=== PATIENT | female | born 1955 | race Native Hawaiian/Other Pacific Islander ===

== ENCOUNTER 2017-12-05 20:32 | Observation (INO) | payer OTHER ==
[2017-12-05] MEDS ORDERED: Nitroglycerin 2% 15 INCH/30 GM TUBE TOP STA (20:48)
[2017-12-05] MEDS ORDERED: Nitroglycerin 2% Ointment Foilpak UD TOP ONE (20:54)
[2017-12-05 21:15] LABS: BASO # 0.1 K/uL (0.0-0.2); BASO % 1.2 % (0.0-2.0); EOS # 0.1 K/uL (0.0-0.7); EOS % 0.9 % (0.0-4.0); HEMOGLOBIN 14.5 g/dL (12.0-16.0); LYMPH # 2.6 K/uL (1.0-4.3); LYMPH % 29.7 % (20.0-40.0); MEAN CELL VOLUME 91.7 fl (81.0-99.0); MEAN CORPUSCULAR HEMOGLOBIN 30.5 pg (27.0-31.0); MEAN CORPUSCULAR HGB CONC 33.3 g/dL (33.0-37.0); MEAN PLATELET VOLUME 8.6 fl (7.2-11.7); MONO # 0.4 K/uL (0.0-0.8); MONO % 4.2 % (0.0-10.0); NEUT # 5.5 K/uL (1.8-7.0); RBC 4.75 Mil/uL (3.80-5.20); WHITE BLOOD COUNT 8.6 K/uL (4.8-10.8)
[2017-12-05 21:25] LABS: CALCIUM 9.9 mg/dL (8.4-10.2); GFR AFRICAN-AMERICAN > 60; GFR NON-AFRICAN AMERICAN > 60
[2017-12-05 21:37] LABS: B-TYPE NATRIURETIC PEPTIDE 868 pg/ml (0-900)
[2017-12-05 21:45] LABS: ALB/GLOB RATIO 1.1 (1.0-2.1); ALBUMIN 5.2 g/dL (3.5-5.0); ALT/SGPT 14 U/L (9-52); AST/SGOT 46 U/L (14-36); BLOOD UREA NITROGEN 13 mg/dl (7-17)
[2017-12-05] MEDS ORDERED: Labetalol 5 mg/ml Inj 20ML IVP STA ×2 (21:47→22:45)
--- NOTE | 2017-12-05 21:55 | ED PDOC ---
HPI: Chest Pain Time Seen by Provider: 12/05/17 20:46 Chief Complaint (Nursing): Dizziness/Lightheaded Chief Complaint (Provider): Chest Pain, Headache, Shortness of Breath History Per: Patient History/Exam Limitations: no limitations Onset/Duration Of Symptoms: Days (x2) Current Symptoms Are (Timing): Still Present Additional Complaint(s): 62 year old [place]ian female with a history of hypertension presents to the ED complaining of chest pain, headache, and shortness of breath since yesterday morning. Of note, patient states she was formerly on medication for her hypertension but successfully came off of them accrediting it to lifestyle changes. 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 When her symptoms came back again today, she attributed it to the warm weather, but her daughter compelled her to come in to the ED for evaluation. She reports nausea but denies vomiting and diaphoresis. PMD: notes she does not have one due to insurance issues. Past Medical History Reviewed: Historical Data, Nursing Documentation, Vital Signs Vital Signs: Last Vital Signs Temp 98.2 F 12/06/17 12:04 Pulse 67 12/06/17 12:04 Resp 18 12/06/17 12:04 BP 144/79 12/06/17 12:04 Pulse Ox 98 12/06/17 12:04 - Medical History PMH: TIA (no residual weakness) - Surgical History Surgical History: No Surg Hx - Family History Family History: States: No Known Family Hx - Social History Current smoker - smoking cessation education provided: No Alcohol: None Drugs: Denies - Home Medications Home Medications: Ambulatory Orders Medication Instructions Recorded Aspirin 325 mg PO DAILY #30 tab 12/06/17 Lisinopril [Zestril] 10 mg PO DAILY #30 tab 12/06/17 [id number] Ethyl Esters 1 GM 2 gm PO BID sgl 12/06/17 [Lovaza] Rosuvastatin Calcium [Crestor] 5 mg PO DAILY #30 tablet 12/06/17 hydroCHLOROthiazide [Microzide] 12.5 mg PO DAILY #30 cap 12/06/17 - Allergies Allergies/Adverse Reactions: Allergies Allergy/AdvReac Type Severity Reaction Status Date / Time No Known Allergies Allergy Verified 12/05/17 20:41 Review of Systems ROS Statement: Except As Marked, All Systems Reviewed And Found Negative Constitutional: Negative for: Other (diaphoresis) Cardiovascular: Positive for: Chest Pain (and tightness) Respiratory: Positive for: Shortness of Breath Gastrointestinal: Positive for: Nausea. Negative for: Vomiting Neurological: Positive for: Headache Physical Exam - Reviewed Nursing Documentation Reviewed: Yes Vital Signs Reviewed: Yes - Physical Exam Appears: Positive for: No Acute Distress Head Exam: Positive for: ATRAUMATIC, NORMOCEPHALIC Skin: Positive for: Normal Color, Warm, Dry Eye Exam: Positive for: Normal appearance, EOMI, PERRL ENT: Positive for: Normal ENT Inspection Neck: Positive for: Normal, Painless ROM, Supple Cardiovascular/Chest: Positive for: Regular Rate, Rhythm. Negative for: Murmur Respiratory: Positive for: Normal Breath Sounds. Negative for: Accessory Muscle Use, Respiratory Distress Gastrointestinal/Abdominal: Positive for: Normal Exam, Soft. Negative for: Tenderness Back: Positive for: Normal Inspection. Negative for: L CVA Tenderness, R CVA Tenderness, Vertebral Tenderness Extremity: Positive for: Normal ROM. Negative for: Pedal Edema, Calf Tenderness Neurologic/Psych: Positive for: Alert, Oriented (x3). Negative for: Motor/ Sensory Deficits Comments: Patient is hypertensive. - Laboratory Results Result Diagrams: 12/05/17 20:55 12/06/17 05:30 - ECG O2 Sat by Pulse Oximetry: 98 (RA) Pulse Ox Interpretation: Normal Medical Decision Making Medical Decision Making: Initial Impression: 62 year old hypertensive I[place]ian female presenting with chest pain, headache and shortness of breath Time: 20:48 Initial Plan: --EKG --BNP --CMP --Trop I --CBC with differential --PT / PTT --CXR Portable --Aspirin 324 mg PO --Nitroglycerin 2% 2 inch TOP Time: 2047 --CXR: no active disease noted. Time: 2146 --Labetalol ordered for elevated blood pressure. Time: 2244 --Labetalol reordered. Time: 2341 --Blood pressure shows improvement after 2nd dose of Labetalol. --Patient is placed on OBS as discussed with hospitalist, Dr. Montes De Oca. Clinical Impression: Hypertension urgency; Chest pain Scribe Attestation: Documented by Latasha Orantes and Ratna Howe, acting as scribes for Heath Peoples MD. Provider Scribe Attestation: All medical entries made by the Scribe were at my direction and personally dictated by me. I have reviewed the chart and agree that the record accurately reflects my personal performance of the history, physical exam, medical decision making, and the department course for this patient. I have also personally directed, reviewed, and agree with the discharge instructions and disposition. Disposition - Clinical Impression Clinical Impression: Chest pain, Hypertensive urgency - Disposition Disposition Time: 23:42 Condition: STABLE Critical Care Time - Critical Care Note Total Time (in mins): 60 Documented critical care: time excludes all time spent performing seperately billable procedures.
[2017-12-05 22:07] LABS: INR 0.9 (0.9-1.2); PROTHROMBIN TIME 10.4 Seconds (9.8-13.1)
[2017-12-05 22:08] LABS: PARTIAL THROMBOPLASTIN TIME 31.8 Seconds (25.6-37.1)
[2017-12-05] MEDS ORDERED: Labetalol 5 mg/ml Inj 20ML IVP PRN (23:59)
--- NOTE | 2017-12-06 00:03 | CP.PCM.HP ---
History of Present Illness - History of Present Illness History of Present Illness: CC: CP, GARNER HPI: This is a 62 y/o female with no diagnosed chronic disease who comes in with severely elevated BP, chest pain, and GARNER today. She states she has not seen a doctor in a long time, and that she is not taking any medications for BP. She does have CP intermittently, but today when she was driving home from work, it was worse, and so she decided to come to the ER. She denies SOB, denies ALFARO. Denies palpitations/diaphoresis. States she had a stress test many, many years ago, and no other workup since then. Denies f/c/n/v/d. ROS: 14 systems reviewed, negative other than HPI MHx: ?TIA earlier this year with transient L sided weakness SHx: Tubal ligation Allergies: NKDA Medications: None Family Hx: Multiple family members with HTN, CAD/[place] Social Hx: Lives with daughter, no tobacco, no EtOH Surrogate: Daughter, info in chart Present on Admission - Present on Admission Any Indicators Present on Admission: No Past Patient History - Past Social History Alcohol: None Drugs: Denies - NEUROLOGICAL Hx Transient Ischemic Attacks (TIA): Yes (no residual weakness) - PSYCHIATRIC Hx Substance Use: No Meds Allergies/Adverse Reactions: Allergies Allergy/AdvReac Type Severity Reaction Status Date / Time No Known Allergies Allergy Verified 12/05/17 20:41 Physical Exam - Constitutional Appears: No Acute Distress - Head Exam Head Exam: ATRAUMATIC, NORMOCEPHALIC - Eye Exam Eye Exam: EOMI, PERRL - ENT Exam ENT Exam: Mucous Membranes Moist - Neck Exam Neck exam: Positive for: Normal Inspection - Respiratory Exam Respiratory Exam: Clear to Auscultation Bilateral, NORMAL BREATHING PATTERN - Cardiovascular Exam Cardiovascular Exam: REGULAR RHYTHM, +S1, +S2 - GI/Abdominal Exam GI & Abdominal Exam: Normal Bowel Sounds, Soft - Extremities Exam Extremities exam: Positive for: full ROM, normal inspection - Neurological Exam Neurological exam: Alert, CN II-XII Intact, Oriented x3 - Psychiatric Exam Psychiatric exam: Normal Affect, Normal Mood - Skin Skin Exam: Dry, Warm Results - Vital Signs Recent Vital Signs: Last Vital Signs Temp 98.4 F 12/05/17 20:41 Pulse 78 12/05/17 22:59 Resp 16 12/05/17 22:59 BP 161/101 H 12/05/17 23:26 Pulse Ox 98 12/05/17 23:50 - Labs Result Diagrams: 12/05/17 20:55 12/05/17 20:55 Labs: Laboratory Results - last 24 hr 12/05/17 12/05/17 12/05/17 20:55 20:55 20:55 WBC 8.6 RBC 4.75 Hgb 14.5 Hct 43.5 MCV 91.7 MCH 30.5 MCHC 33.3 RDW 14.0 Plt Count 276 MPV 8.6 Neut % (Auto) 64.0 Lymph % (Auto) 29.7 Crawford % (Auto) 4.2 Eos % (Auto) 0.9 Baso % (Auto) 1.2 Neut # (Auto) 5.5 Lymph # (Auto) 2.6 Crawford # (Auto) 0.4 Eos # (Auto) 0.1 Baso # (Auto) 0.1 PT 10.4 INR 0.9 APTT 31.8 Sodium 143 Potassium 5.1 H Chloride 104 Carbon Dioxide 25 Anion Gap 19 BUN 13 Creatinine 0.6 L Est GFR ( Amer) > 60 Est GFR (Non-Af Amer) > 60 Random Glucose 128 H Calcium 9.9 Total Bilirubin 1.5 H AST 46 H ALT 14 Alkaline Phosphatase 75 Troponin I 0.0160 NT-Pro-B Natriuret Pep 868 Total Protein 10.0 H Albumin 5.2 H Globulin 4.8 H Albumin/Globulin Ratio 1.1 - EKG Data EKG Interpreted by: Myself EKG shows normal: Sinus rhythm Rate: Normal - EKG Data EKG comments: LVH, ?inf q waves, poor R wave progression - Impressions Impression: LVH, q waves in inferior leads, poor R wave progression - Imaging and Cardiology Chest x-ray Status: Image reviewed by me (no acute findings) Assessment & Plan (1) Chest pain Assessment and Plan: 62 y/o female that does not get routine medical care coming in w/ CP in setting of elevated SBP 220 -- hypertensive urgency. 1) CP/HTNsive urgency -Obs tele -Serial troponins -Patient received ASA 324 in ED -Q6h PRN Labetolol 20 mg IV for SBP > 180-190 -Patient will need to be on medical terminologist BP medications, will start on HCTZ 25 mg daily and Lisinopril 5 mg daily, and these can be titrated as an outpatient 2) DVT PPx -- SCDs Status: Acute (2) Uncontrolled hypertension Status: Acute (3) DVT prophylaxis Status: Acute
[2017-12-06 00:35] LABS: SQUAMOUS EPITHIAL < 1 /hpf (0-5); URINE BILIRUBIN NEGATIVE (NEGATIVE); URINE BLOOD SMALL (NEGATIVE); URINE CLARITY CLEAR (Clear); URINE COLOR COLORLESS (YELLOW); URINE GLUCOSE (UA) NEG (Normal); URINE LEUKOCYTE ESTERASE NEG Leu/uL (Negative); URINE PROTEIN NEGATIVE (NEGATIVE); URINE UROBILINOGEN 0.2-1.0 mg/dL (0.2-1.0)
[2017-12-06 00:50] VITALS: RESP 18
[2017-12-06] MEDS ORDERED: Pneumococcal 23-Valent Vaccine IM ONE (06:30)
[2017-12-06 07:20] LABS: HDL CHOLESTEROL 38 MG/DL (30-70)
[2017-12-06 07:31] LABS: LDL CHOLESTEROL 211 mg/dL (0-129)
--- NOTE | 2017-12-06 07:45 | RAD ---
HISTORY: chest pain COMPARISON: No prior. FINDINGS: LUNGS: No active pulmonary disease. PLEURA: No significant pleural effusion identified, no pneumothorax apparent. CARDIOVASCULAR: Normal. OSSEOUS STRUCTURES: No significant abnormalities. VISUALIZED UPPER ABDOMEN: Normal. OTHER FINDINGS: None. IMPRESSION: No active disease.
[2017-12-06 08:03] VITALS: O2SAT 98
[2017-12-06 08:36] LABS: BLOOD UREA NITROGEN 16 mg/dl (7-17); CALCIUM 9.5 mg/dL (8.4-10.2); GFR AFRICAN-AMERICAN > 60; GFR NON-AFRICAN AMERICAN > 60
[2017-12-06] MEDS ORDERED: Omega-3-Acid Ethyl Esters 1 GM Cap PO SCH (10:00)
--- NOTE | 2017-12-06 10:08 | CARD ---
APPROVED REPORT EKG Measurement Heart [id number] <Conclusion> Normal sinus rhythm Moderate voltage criteria for LVH, may be normal variant Inferior infarct, age undetermined Cannot rule out Anterior infarct, age undetermined Abnormal ECG
[2017-12-06 12:05] VITALS: BP 144/79; PULSE 67; TEMP 98.2
--- NOTE | 2017-12-06 14:17 | CP.PCM.DIS ---
Provider - Provider Date of Admission: 12/05/17 23:42 Attending physician: Nikos Montes De Oca MD Time Spent in preparation of Discharge (in minutes): 40 Diagnosis - Discharge Diagnosis (1) Atypical chest pain Status: Acute (2) Uncontrolled hypertension Status: Acute (3) Hyperlipidemia Status: Chronic Hospital Course - Lab Results Lab Results: Most Recent Lab Values WBC 8.6 K/uL (4.8-10.8) 12/05/17 20:55 RBC 4.75 Mil/uL (3.80-5.20) 12/05/17 20:55 Hgb 14.5 g/dL (12.0-16.0) 12/05/17 20:55 Hct 43.5 % (34.0-47.0) 12/05/17 20:55 MCV 91.7 fl (81.0-99.0) 12/05/17 20:55 MCH 30.5 pg (27.0-31.0) 12/05/17 20:55 MCHC 33.3 g/dL (33.0-37.0) 12/05/17 20:55 RDW 14.0 % (11.5-14.5) 12/05/17 20:55 Plt Count 276 K/uL (130-400) 12/05/17 20:55 MPV 8.6 fl (7.2-11.7) 12/05/17 20:55 Neut % (Auto) 64.0 % (50.0-75.0) 12/05/17 20:55 Lymph % (Auto) 29.7 % (20.0-40.0) 12/05/17 20:55 Wells % (Auto) 4.2 % (0.0-10.0) 12/05/17 20:55 Eos % (Auto) 0.9 % (0.0-4.0) 12/05/17 20:55 Baso % (Auto) 1.2 % (0.0-2.0) 12/05/17 20:55 Neut # (Auto) 5.5 K/uL (1.8-7.0) 12/05/17 20:55 Lymph # (Auto) 2.6 K/uL (1.0-4.3) 12/05/17 20:55 Wells # (Auto) 0.4 K/uL (0.0-0.8) 12/05/17 20:55 Eos # (Auto) 0.1 K/uL (0.0-0.7) 12/05/17 20:55 Baso # (Auto) 0.1 K/uL (0.0-0.2) 12/05/17 20:55 PT 10.4 Seconds (9.8-13.1) 12/05/17 20:55 INR 0.9 (0.9-1.2) 12/05/17 20:55 APTT 31.8 Seconds (25.6-37.1) 12/05/17 20:55 Sodium 142 mmol/l (132-148) 12/06/17 05:30 Potassium 4.0 MMOL/L (3.6-5.0) 12/06/17 05:30 Chloride 103 mmol/L (98-107) 12/06/17 05:30 Carbon Dioxide 26 mmol/L (22-30) 12/06/17 05:30 Anion Gap 17 (10-20) 12/06/17 05:30 BUN 16 mg/dl (7-17) 12/06/17 05:30 Creatinine 0.7 mg/dl (0.7-1.2) 12/06/17 05:30 Est GFR ( Amer) > 60 12/06/17 05:30 Est GFR (Non-Af Amer) > 60 12/06/17 05:30 Random Glucose 118 mg/dL (65-105) H 12/06/17 05:30 Calcium 9.5 mg/dL (8.4-10.2) 12/06/17 05:30 Total Bilirubin 1.5 mg/dl (0.2-1.3) H 12/05/17 20:55 AST 46 U/L (14-36) H 12/05/17 20:55 ALT 14 U/L (9-52) 12/05/17 20:55 Alkaline Phosphatase 75 U/L (38-126) 12/05/17 20:55 Troponin I < 0.0120 ng/mL (0.00-0.120) 12/06/17 13:00 NT-Pro-B Natriuret Pep 868 pg/ml (0-900) 12/05/17 20:55 Total Protein 10.0 G/DL (6.3-8.2) H 12/05/17 20:55 Albumin 5.2 g/dL (3.5-5.0) H 12/05/17 20:55 Globulin 4.8 gm/dL (2.2-3.9) H 12/05/17 20:55 Albumin/Globulin Ratio 1.1 (1.0-2.1) 12/05/17 20:55 Triglycerides 125 mg/DL (0-149) 12/06/17 06:20 Cholesterol 311 mg/dL (0-199) H 12/06/17 06:20 LDL Cholesterol Direct 211 mg/dL (0-129) H 12/06/17 06:20 HDL Cholesterol 38 MG/DL (30-70) 12/06/17 06:20 Urine Color Colorless (YELLOW) 12/06/17 00:17 Urine Clarity Clear (Clear) 12/06/17 00:17 Urine pH 7.0 (5.0-8.0) 12/06/17 00:17 Ur Specific [place] < 1.005 (1.003-1.030) 12/06/17 00:17 Urine Protein Negative mg/dL (NEGATIVE) 12/06/17 00:17 Urine Glucose (UA) Neg mg/dL (Normal) 12/06/17 00:17 Urine Ketones Negative mg/dL (NEGATIVE) 12/06/17 00:17 Urine Blood Small (NEGATIVE) 12/06/17 00:17 Urine Nitrate Negative (NEGATIVE) 12/06/17 00:17 Urine Bilirubin Negative (NEGATIVE) 12/06/17 00:17 Urine Urobilinogen 0.2-1.0 mg/dL (0.2-1.0) 12/06/17 00:17 Ur Leukocyte Esterase Neg Kuldip/uL (Negative) 12/06/17 00:17 Ur Squamous Epith Cells < 1 /hpf (0-5) 12/06/17 00:17 - Hospital Course Hospital Course: 62 y/o female with history of HTN, Hyperlipidemia, TIA, noncompliant with her medications , came in because of chest pain. In the ED , her BP was found to be markedly elevated at 205/130. EKG showed LVH, T wav einversion in III and AVF and V3-V6. CXR was negative. Pt was observed in Telemetry. IV Labetatol prn started. Her CP resolved once in the hospital . She was started on Lisinopril, HCTZ, ASA, and Statin. Troponin x 3 negative. CP resolved , BP better controlled. Pt refused to stay for further cardiac work up. Discussed with Pt and her daughter need for further cardiac work up - ie: Nuclear Stess test, LEAH - lisa who is an employee of the hospital will make sure pt goes for ff up for further cardiac work up and will supervise compliance of med intake. Discharge Exam - Head Exam Head Exam: ATRAUMATIC, NORMAL INSPECTION, NORMOCEPHALIC - Eye Exam Eye Exam: EOMI, Normal appearance, PERRL Pupil Exam: NORMAL ACCOMODATION - ENT Exam ENT Exam: Mucous Membranes Moist, Normal External Ear Exam - Neck Exam Neck exam: Full Rom - Respiratory Exam Respiratory Exam: NORMAL BREATHING PATTERN. absent: Respiratory Distress - Cardiovascular Exam Cardiovascular Exam: REGULAR RHYTHM, +S1, +S2 - GI/Abdominal Exam GI & Abdominal Exam: Normal Bowel Sounds, Soft. absent: Tenderness - Extremities Exam Extremities exam: full ROM, normal capillary refill, pedal pulses present - Back Exam Back exam: FULL ROM. absent: CVA tenderness (L), CVA tenderness (R) - Neurological Exam Neurological exam: Alert, CN II-XII Intact, Oriented x3, Reflexes Normal - Psychiatric Exam Psychiatric exam: Normal Affect, Normal Mood - Skin Skin Exam: Dry, Intact, Normal Color, Warm Discharge Plan - Discharge Medications Prescriptions: Aspirin 325 mg PO DAILY #30 tab hydroCHLOROthiazide [Microzide] 12.5 mg PO DAILY #30 cap Lisinopril [Zestril] 10 mg PO DAILY #30 tab Rosuvastatin Calcium [Crestor] 5 mg PO DAILY #30 tablet - Follow Up Plan Condition: STABLE Disposition: HOME/ ROUTINE Instructions: Chest Pain (DC) Additional Instructions: ff up [facility] appt [facility] for further cardiac work up Referrals: [facility] [place] [Outside]
== END 2017-12-06 15:00 | disposition home or self-care (01) ==
LOC: H.ER 20:32 → H.ERHOLD 23:42 → H.TEL 12-06 00:39
PROVIDERS: ADMIT Internal Medicine; ATTEND Internal Medicine
DX: I16.0 Hypertensive urgency (principal); R07.89 Other chest pain; E78.5 Hyperlipidemia, unspecified; I10 Essential (primary) hypertension; Z23 Encounter for immunization; Z91.14 Patient's other noncompliance with medication regimen; Z79.82 Long term (current) use of aspirin; Z86.73 Personal history of transient ischemic attack (TIA), and cerebral infarction without residual deficits
CPT/HCPCS: 36415; 71045; 80048; 80053; 80061; 81003; 83880; 84484; 85025; 85610; 85730; 90471; 90732; 93005; 96374; 96376; 99283; G0378